=== PATIENT | female | born 1985 | race African-American/Black ===

== ENCOUNTER 2019-09-02 03:19 | Emergency (ER) | payer MEDICARE, OTHER ==
[~2019-09-02] VITALS: Ht 167.6 cm; Wt 77.3 kg
[~2019-09-02 03:19] MED LIST: NOCURR
[2019-09-02] MEDS ORDERED: FLUORESCEIN SODIUM 1 MG STRIP OD ONE (03:45)
[2019-09-02] MEDS ORDERED: OLOPATADINE HCL 0.1% 5 ML OPHTHALMIC SOLUTION OU ONE (04:00)
[2019-09-02 04:20] VITALS: BP 119/83
== END 2019-09-02 04:25 | disposition home or self-care (01) ==
LOC: EMS 03:19
DX: H10.13 Acute atopic conjunctivitis, bilateral (principal)